=== PATIENT | male | born 1965 | race Caucasian/White ===

== ENCOUNTER 2016-08-23 21:10 | Emergency (ER) | payer OTHER ==
[2016-08-23 21:17] VITALS: O2SAT 96
--- NOTE | 2016-08-23 21:59 | EDPHY ---
H & P Time Seen by Provider: 08/23/16 21:26 HPI/ROS: CHIEF COMPLAINT: Right hand injury HISTORY OF PRESENT ILLNESS: 51-year-old male presents to the emergency department with injury to the right hand. The patient states that he was at home and fell into some closet door hours and cut the palm of his right hand and sustained abrasions to his right hand and wrist. He did not hit his head or lose consciousness. Denies any other trauma or injury. He is right-hand dominant. He is unsure of his last tetanus shot however he does not want a tetanus shot in the emergency department. ROS: Denies numbness or tingling in his fingers, retained foreign body or other injuries. Denies pain in his right elbow or shoulder. Denies pain in his right wrist. Past Medical/Surgical History: Lumbar fusion, orthopedic surgery Social History: Smoking Status: Current some day smoker Physical Exam: On examination the patient has multiple superficial abrasions to the volar aspect of the right wrist as well as dorsal aspect of his fingers of the right hand. He has a 3 cm laceration to the palm of the right hand between the webspace of the thumb and index finger. No tendon injuries noted. He has full range of motion of his fingers. No palpable bony tenderness. No evidence of retained foreign body. No active bleeding. Normal sensation to light touch with normal 2 point discrimination. Constitutional: Initial Vital Signs Temperature (C) 36.6 C 08/23/16 21:13 Heart Rate 95 08/23/16 21:13 Respiratory Rate 16 08/23/16 21:13 Blood Pressure 145/100 H 08/23/16 21:13 O2 Sat (%) 96 08/23/16 21:13 O2 Delivery Mode Room Air Allergies/Adverse Reactions: No Known Allergies Allergy (Verified 08/23/16 21:16) Home Medications: Medication Instructions Recorded NK [No Known Home Meds] 08/23/16 MDM/Departure - MDM Procedures: Laceration repair. Verbal consent was obtained from the patient. The 3 cm laceration on the right palm was anesthetized using 1% lidocaine with epinephrine. The wound was irrigated with saline, draped and explored to its base with a gloved finger. There were no deep structures involved. No tendon injury was identified. The wound was repaired with 4 0 Ethilon, 5 sutures. The wound repair was simple. The procedure was performed by myself. ED Course/Re-evaluation: 51-year-old male presents with right hand and wrist injury. No palpable bony tenderness. Full range of motion of his wrist and his fingers. I do not think x-rays are indicated. The laceration of the right hand was repaired, see procedure note. The abrasions were thoroughly cleansed and dressed. The patient does not recall his last tetanus shot, however he does not want this updated in the emergency department. He understands the risks. He was given wound care precautions. - Depart Disposition: Home, Routine, Self-Care Clinical Impression: Abrasion of right wrist Qualifiers: Encounter type: initial encounter Qualified Code(s): S60.811A - Abrasion of right wrist, initial encounter Laceration of right hand Qualifiers: Encounter type: initial encounter Foreign body presence: without foreign body Qualified Code(s): S61.411A - Laceration without foreign body of right hand, initial encounter Abrasion of right hand Qualifiers: Encounter type: initial encounter Qualified Code(s): S60.511A - Abrasion of right hand, initial encounter Condition: Good Instructions: Laceration (ED), Care For Your Stitches (ED), Acute Wounds (ED), Abrasion (ED) Additional Instructions: Wound Care Follow-Up: Removal of sutures in 10 days. Suture removal is complimentary in uncomplicated cases. Infection or abnormal findings would require reevaluation by the MD. In that case, you may be billed. Return if you notice any signs or symptoms of infection such as redness, swelling, increased pain, fever, purulent drainage. You declined updating tetanus shot in the emergency department. Referrals: NONE *PRIMARY CARE P,. [Primary Care Provider] - As per Instructions
[2016-08-23 22:37] VITALS: BP 142/99; PULSE 89; RESP 20; TEMP 98.2
== END 2016-08-23 22:38 | disposition home or self-care (01) ==
PROC: 0HQFXZZ Repair Right Hand Skin, External Approach (ICD-10-PCS; principal; 2016-08-23)
DX: S61.411A Laceration without foreign body of right hand, initial encounter (principal); S60.811A Abrasion of right wrist, initial encounter; S60.511A Abrasion of right hand, initial encounter; F17.200 Nicotine dependence, unspecified, uncomplicated; W23.0XXA Caught, crushed, jammed, or pinched between moving objects, initial encounter; Y92.009 Unspecified place in unspecified non-institutional (private) residence as the place of occurrence of the external cause

== ENCOUNTER 2016-08-28 21:04 | Emergency (ER) | payer OTHER ==
[2016-08-28] MEDS ORDERED: SULFAMETHOX/TMP 800/160 MG 1 TAB PO ONE (21:27)
[2016-08-28] MEDS ORDERED: CEPHALEXIN 500 MG CAP PO ONE (21:27)
--- NOTE | 2016-08-28 21:31 | EDPHY ---
H & P Time Seen by Provider: 08/28/16 21:24 HPI/ROS: CHIEF COMPLAINT: Right hand laceration redness HISTORY OF PRESENT ILLNESS: Cut on a wooden closet door and was irrigated and sutured here in the emergency department on the 23 of August. Presents today with 24 hours of redness around the laceration. No foreign body sensation and no fever or chills. No weakness or numbness distally. No drainage from the wound. REVIEW OF SYSTEMS:Otherwise negative PAST MEDICAL HISTORY: Lumbar fusion and knee surgery General Appearance: Alert and conversant, cooperative. 1 cm surrounding redness on the laceration on the right palm on the volar side of the thenar eminence. No wound dehiscence. Two-point discrimination is intact. Full range of motion of all fingers including normal flexor and extensor tendon function in all 5 digits. Normal capillary refill. Very mildly tender to palpation but no fluctuance over the healing incision. Slightly warm to the touch but no lymphangitis normal range of motion of the wrist and nothing on the proximal hand or forearm. Emergency Department course/MDM: Started on Bactrim and Keflex, x-ray to evaluate for possible retained foreign body. I think deep space infection or abscess, fasciitis, tenosynovitis are unlikely. Mandatory hand surgeon evaluation 36 hours on Tuesday in the office. Thumb spica splint placed Velcro by tech for protection and immobilization. Smoking Status: Current some day smoker Constitutional: Initial Vital Signs Temperature (C) 36.6 C 08/28/16 21:07 Heart Rate 84 08/28/16 21:07 Respiratory Rate 18 08/28/16 21:07 Blood Pressure 132/109 H 08/28/16 21:07 O2 Sat (%) 96 08/28/16 21:07 O2 Delivery Mode Room Air Allergies/Adverse Reactions: No Known Allergies Allergy (Verified 08/28/16 21:07) Home Medications: Medication Instructions Recorded Cephalexin [Keflex] 500 mg PO QID #40 cap 08/28/16 Sulfamethox/Tmp 800/160 mg 1 tab PO BID@1000,2200 #20 tab 08/28/16 [Bactrim Ds] MDM/Departure - MDM Diagnostics: Right hand x-ray personally interpreted by myself negative for foreign body. Medications Given: Discontinued Medications Cephalexin HCl (Keflex) 500 mg PO EDNOW ONE PRN Reason: Protocol Stop: 08/28/16 21:28 Last Admin: 08/28/16 21:40 Dose: 500 mg Trimethoprim/Sulfamethoxazole (Bactrim Ds) 1 ea PO EDNOW ONE PRN Reason: Protocol Stop: 08/28/16 21:28 Last Admin: 08/28/16 21:40 Dose: 1 ea - Depart Disposition: Home, Routine, Self-Care Clinical Impression: Laceration of hand with infection Qualifiers: Encounter type: subsequent encounter Laterality: right Qualified Code(s): S61.411D - Laceration without foreign body of right hand, subsequent encounter Condition: Good Instructions: Cellulitis (ED) Prescriptions: Cephalexin [Keflex] 500 mg PO QID #40 cap Sulfamethox/Tmp 800/160 mg [Bactrim Ds] 1 tab PO BID@1000,2200 #20 tab Referrals: Manuel Bonilla MD [Medical Doctor] - 08/30/16 (Follow-up in the office with this hand surgeon Tuesday for recheck. Return to the ER if you get worsening redness swelling pain or fever.)
[2016-08-28 22:08] VITALS: BP 126/89; PULSE 78; RESP 16; TEMP 98.1; O2SAT 98
== END 2016-08-28 22:08 | disposition home or self-care (01) ==
DX: S61.411D Laceration without foreign body of right hand, subsequent encounter (principal); F17.200 Nicotine dependence, unspecified, uncomplicated; W45.8XXD Other foreign body or object entering through skin, subsequent encounter
CPT/HCPCS: L3807

== ENCOUNTER 2018-10-29 23:08 | Emergency (ER) | payer MEDICAID, OTHER | END 2018-10-30 00:40 | disposition home or self-care (01) ==